=== PATIENT | female | born 1930 | race American Indian/Alaskan Native ===

== ENCOUNTER 2017-04-04 15:11 | Emergency (ER) | payer MEDICARE, MEDICAID ==
--- NOTE | 2017-04-04 14:56 | EDM.PDOC ---
ED HPI GENERAL MEDICAL PROBLEM - General Chief Complaint: Cardiovascular Problem Stated Complaint: UNRESPONSIVE IN BY AMBULANCE Time Seen by Provider: 04/04/17 14:20 Source of Information: Reports: EMS History Limitations: Reports: Other - History of Present Illness INITIAL COMMENTS - FREE TEXT/NARRATIVE: This 86 yo female patient was brought to the ED by [facility] and [facility] in full cardiac arrest with CPR in progress. EMS reports that they were called to a vehicle with the patient inside. Family members report the patient stopped responding, stopped breathing and CPR was inprogress while the patient was inside the vehicle. EMS reports initially they had a shockable rhythm and 1 shock was delivered. After the shock, EMS continued to administer CPR, an IV was established and the ET tube was secured. EMS had given the patient Epi x2 and Atropine x1 prior to arrival in the ED. Upon arrival in the ED, the patient was secured to a long spine board, an IV was established in her left arm and the airway was secured by ET tube. Lung sounds were equal bilaterally. The patient had a palpable femoral pulse with CPR. Cardiac rhythm was asystole upon arrival. CPR was continued while in the ED. The patient was given an additional dose of Epinephrine while in the ED. After 2 minutes, the patient remained pulseless with no respiratory effort. The patient's rhythm was asystole. Onset: Today Duration: Minutes:, Constant Location: Reports: Generalized Quality: Reports: Other Severity: Severe Improves with: Reports: None Worsens with: Reports: None Context: Reports: Other - Related Data Allergies Allergy/AdvReac Type Severity Reaction Status Date / Time ibuprofen Allergy Unknown Cannot Verified 04/26/16 08:37 Remember metoprolol Allergy Unknown Cannot Verified 04/26/16 08:37 Remember lisinopril AdvReac Unknown Cough Verified 04/26/16 08:37 Home Meds: Home Meds Albuterol [Proventil HFA] 2 puff INH Q4H 05/29/14 [History] Aspirin [Halfprin] 81 mg PO DAILY 05/29/14 [History] Bumetanide [Bumex] 1 mg PO BID 05/29/14 [History] Formoterol/Mometasone [Dulera 100 MCG/5 MCG] 2 puff IH BID 05/29/14 [History] Insulin Asp Prot/Insulin Asp [NovoLOG Mix 70-30] 53 units SUBCUT TID 05/29/14 [ History] Labetalol [Normodyne] 300 mg PO BID 05/29/14 [History] Multivitamin [Multivitamins] 1 tab PO DAILY 05/29/14 [History] PARoxetine [Paxil] 10 mg PO DAILY 05/29/14 [History] Benzonatate [Tessalon Perles] 100 mg PO BID PRN #30 cap 06/02/14 [Rx] Metolazone 2.5 mg PO ASDIRECTED PRN #0 06/02/14 [Rx] Acetaminophen with Codeine [Acetaminophen-Cod #3] 1 each PO Q6HR 06/02/16 [ History] Albuterol/Ipratropium [DuoNeb 3.0-0.5 MG/3 ML] 3 ml NEB Q6HRRT 06/02/16 [History ] Calcitriol [Rocaltrol] 0.25 mcg PO DAILY 06/02/16 [History] Ciprofloxacin HCl [Cipro] 250 mg PO BID 06/02/16 [History] Fluticasone Propionate [Flonase] 2 spray NASBOTH DAILY 06/02/16 [History] Isosorbide Mononitrate [Isosorbide Mononitrate ER] 60 mg PO DAILY 06/02/16 [ History] Non-Formulary Medication [NF Drug] 12 lotion TOP BID PRN 06/02/16 [History] Sodium Chloride [[place]] 2 sprays NASBOTH QID 06/02/16 [History] atorvaSTATin [Lipitor] 10 mg PO BEDTIME 06/02/16 [History] hydrALAZINE [Apresoline] 10 mg PO TID 06/02/16 [History] Potassium Chloride 10 meq PO DAILY #30 capsule.er 06/03/16 [Rx] Past Medical History HEENT History: Reports: Impaired Vision Cardiovascular History: Reports: CAD, Heart Failure, High Cholesterol, Hypertension Respiratory History: Reports: COPD Genitourinary History: Reports: Chronic Renal Insuffiency, Dialysis, Renal Disease Other Genitourinary History: 04/19/16 dialysis shunt placed in left AC [employer] History: Reports: None Other OB/BYN History: 2C-sections and 1 miscarrage Musculoskeletal History: Reports: None Neurological History: Reports: None Psychiatric History: Reports: Depression Endocrine/Metabolic History: Reports: Diabetes, Type II, Obesity/BMI 30+ Hematologic History: Reports: None Immunologic History: Reports: None Oncologic (Cancer) History: Reports: None Dermatologic History: Reports: None Other Dermatologic History: dry skin throughout - Infectious Disease History Infectious Disease History: Reports: Chicken Pox, Measles, Mumps - Past Surgical History Cardiovascular Surgical History: Reports: Vascular Surgery Female Surgical History: Reports: D&C, Tubal Ligation, Other (See Below) Social & Family History - Family History Family Medical History: Noncontributory Neurological: Reports: CVA (mother) Endocrine/Metabolic: Reports: Diabetes, type II (both parents) Oncologic: Reports: Other (See Below) - Tobacco Use Smoking Status *Q: Never Smoker Years of Tobacco use: 20 Packs/Tins Daily: 0.1 Used Tobacco, but Quit: Yes Month Tobacco Last Used: October Second Hand Smoke Exposure: No - Caffeine Use Caffeine Use: Reports: Tea Other Caffeine Use: drinks 3 cups of tea/day - Alcohol Use Days Per Week of Alcohol Use: 0 - Recreational Drug Use Recreational Drug Use: No - Living Situation & Occupation Living situation: Reports: with Family Occupation: Retired ED ROS GENERAL - Review of Systems Review Of Systems: ROS reveals no pertinent complaints other than HPI. ED EXAM, GENERAL - Physical Exam Exam: See Below Exam Limited By: Other (CPR in progress, full cardiac arrest) General Appearance: Severe Distress, Obese Eye Exam: Bilateral Eye: Other (Pupils were fixed and dialated) Ears: Normal External Exam, Normal Canal Nose: Normal Inspection, Nasal Drainage Respiratory/Chest: Other Cardiovascular: Other (asystole) GI/Abdominal: Other (Female) Exam: Deferred Rectal (Female) Exam: Deferred Skin Exam: Pallor Lymphatic: No Adenopathy Course - Vital Signs Last Recorded V/S: Last Vital Signs Temp Pulse Resp BP Pulse Ox 81 L 04/04/17 14:20 Departure - Departure Time of Disposition: 15:26 Disposition: DC/Tfer to Other Preliminary Cause of *Q: Cardiac Arrest Reason for Transfer *Q: Other Condition: Critical Clinical Impression: Cardiac arrest Forms: ED Department Discharge
[~2017-04-04 15:11] MED LIST: EPINEPHrine 1:10,000 1 MG/10 ML Syringe IV ONE
== END 2017-04-04 16:25 | disposition other institution (70) ==
LOC: DL.ED 15:11
DX: I46.9 Cardiac arrest, cause unspecified (principal); I13.0 Hypertensive heart and chronic kidney disease with heart failure and stage 1 through stage 4 chronic kidney disease, or unspecified chronic kidney disease; E11.22 Type 2 diabetes mellitus with diabetic chronic kidney disease; N18.9 Chronic kidney disease, unspecified; I50.9 Heart failure, unspecified; F32.9 Major depressive disorder, single episode, unspecified; E66.9 Obesity, unspecified; Z79.4 Long term (current) use of insulin; Z99.2 Dependence on renal dialysis; Z87.891 Personal history of nicotine dependence; Z98.51 Tubal ligation status; Z98.890 Other specified postprocedural states; Z79.899 Other long term (current) drug therapy; Z79.82 Long term (current) use of aspirin; Z88.6 Allergy status to analgesic agent; Z88.8 Allergy status to other drugs, medicaments and biological substances; Z68.41 Body mass index [BMI] 40.0-44.9, adult
CPT/HCPCS: 92950; 96374; 99285; J0171